=== PATIENT | female | born 1965 | race Caucasian/White ===

== ENCOUNTER 2017-04-05 21:00 | Observation (INO) ==
--- NOTE | 2017-04-05 21:10 | Emergency Department Note ---
Disposition Clinical Impression: Temporary low platelet count Disposition: Admitted As Inpatient Condition: Good Referrals: NO,PCP [Non-Partnered Physician] - Forms: ED Satisfaction Letter Time of Disposition: 22:53 General Adult HPI - General Chief complaint: ED Recheck/Abnormal Lab/Rx Stated complaint: sent from for platlet transfusion Time Seen by Provider: 04/05/17 21:10 Source: patient Limitations: no limitations Nursing Notes Reviewed: Yes Vital Signs Reviewed: Yes - History of Present Illness HPI Narrative: Patient has new diagnosis of liver cancer. She had routine lab work done today and had a platelet count of 16. She received a phone call from the [facility] telling her to come here for platelet transfusion. She has no complaints. She states she has her normal right upper quadrant abdominal pain. Pain Scale: 3 - Related Data Home Medications Medication Instructions Recorded Confirmed Dexamethasone [Decadron] 4 mg PO BID 04/05/17 04/05/17 Docusate [Colace] 200 mg PO BID PRN 04/05/17 04/05/17 Nicotine Patch [Nicoderm] 7 mg TD DAILY 04/05/17 04/05/17 Ondansetron HCl [Zofran] 4 mg PO Q6H PRN 04/05/17 04/05/17 OxyCODONE Immed Rel [Roxicodone 5 5 mg PO Q4H PRN 04/05/17 04/05/17 MG] Pantoprazole Sodium [Protonix] 40 mg PO DAILY 04/05/17 04/05/17 Polyethylene Glycol 3350 17 gm PO BID PRN 04/05/17 04/05/17 [Smoothlax] Sennosides [Senna] 17.2 mg PO BID 04/05/17 04/05/17 Sertraline [Zoloft] 25 mg PO DAILY 04/05/17 04/05/17 Sorafenib Tosylate [Nexavar] 200 mg PO QPM 04/05/17 Sorafenib Tosylate [Nexavar] 400 mg PO QAM 04/05/17 Spironolactone [Aldactone] 50 mg PO DAILY 04/05/17 04/05/17 Allergies Allergy/AdvReac Type Severity Reaction Status Date / Time No Known Allergies Allergy Verified 04/05/17 21:06 All systems ED: reviewed and negative except as stated. Constitutional: Denies: fever, chills ENT ED: Denies: congestion Cardiovascular: Denies: chest pain, palpitations, syncope Respiratory: Denies: cough, dyspnea, wheezes Gastrointestinal: Reports: abdominal pain (Chronic right upper quadrant pain. No changes.). Denies: nausea, vomiting, diarrhea, hematemesis, melena, hematochezia Genitourinary: Denies: urgency, dysuria, frequency, hematuria Musculoskeletal: Denies: back pain, neck pain Integumentary: Reports: rash (Petechial rash to right forearm.) Past Medical History - Past Medical History Medical history: Reports: cancer Psychiatric history: Reports: depression [employer] history: Reports: no [employer] DEVEL[employer] history - Social History Smoking Status: Current every day smoker Smokeless Tobacco Status: No Alcohol use: Reports: none Drug use: Reports: none Physical Exam - General Limitations: no limitations General appearance: alert, in no apparent distress - Head Head exam: atraumatic, normocephalic, normal inspection - Eye Eye exam: Present: normal appearance, PERRL, EOMI - ENT ENT exam: normal exam, normal oropharynx, mucous membranes moist - Neck Neck exam: Present: normal inspection, full ROM, trachea midline - Chest Chest inspection: Present: normal inspection, symmetric chest wall rise. Absent : tenderness - Respiratory Respiratory exam: Present: normal lung sounds bilaterally. Absent: respiratory distress - Cardiovascular Cardiovascular exam: Present: regular rate, normal rhythm, normal heart sounds - Abdominal Exam Abdominal exam: Present: soft, Non-Tender, normal bowel sounds. Absent: tenderness, distention, guarding, rebound, rigidity, organomegaly - Extremities Exam Extremities exam: Present: normal inspection, full ROM, normal capillary refill. Absent: tenderness, pedal edema - Back Exam Back exam: Present: normal inspection, full ROM. Absent: tenderness, CVA tenderness (R), CVA tenderness (L) - Neurological Exam Neurological exam: Present: alert, oriented X3 - Psychiatric Psychiatric exam: Present: normal affect, normal mood - Skin Skin exam: Present: warm, dry, intact, normal color, rash (Small petechial rash to right forearm. Approximately 2 cm x 1 cm.). Absent: cyanosis, diaphoresis Course Course Narrative: Female patient presenting to the emergency department for abnormally low platelets. She was diagnosed with liver cancer on Mother's Day. She is seen at the [facility]. She had routine lab work done today and was told her platelets were 16. He was told to come to the emergency department so she get a platelet transfusion. She has no signs or symptoms of bleeding. She denies any hematochezia or melena hematuria or hematemesis. He only complains of her chronic upper abdominal pain. She states that this is not changed. She does have a mild petechial rash to her right forearm. She has no meningeal signs. She is not febrile. Her vitals are stable. Of note her glucose in the 400s. We will admit patient to the hospital for a platelet transfusion. She is agreeable to this. - Consultations Consultation #1: I spoke with Dr Ziegler. He states that he will come see the Pt in the ED. Time: 22:07 Consultation #2: I spoke with the fellow at the [facility]. She states that she cannot give any advice at this time. She will have the attending the callback. Time: 22:14 Consultation #3: Spoke with Dr Calle. He is advising to go ahead and transfuse the patient with a sixpack of platelets. Time: 22:41 Vital Signs Temperature 97.7 F 04/05/17 21:02 Pulse Rate 72 04/05/17 21:02 Respiratory Rate 16 04/05/17 21:02 Blood Pressure 144/84 04/05/17 21:02 O2 Sat by Pulse Oximetry 96 04/05/17 21:02 Temperature 97.7 F 04/05/17 21:02 Pulse Rate 72 04/05/17 21:02 Respiratory Rate 16 04/05/17 21:02 Blood Pressure 144/84 04/05/17 21:02 O2 Sat by Pulse Oximetry 96 04/05/17 21:02 Oxygen Delivery Oxygen Delivery Room Air Medical Decision Making - Medical Records Medical records reviewed: Yes I reviewed the patient's medical records. - Lab Data Lab results reviewed: Yes I reviewed the patient's lab results. Result diagrams: 04/05/17 22:09 Lab Results 04/05/17 04/05/17 Range/Units 22:09 22: WBC 9.8 (4.3-11.1) K/mcL RBC 4.05 (3.82-4.97) M/mcL Hgb 14.0 (11.5-15.4) g/dL Hct 40.4 (35.3-44.9) % MCV 99.8 (83.0-100.0) fL MCH 34.6 H (28.0-33.3) pg MCHC 34.7 (31.6-35.5) g/dL RDW 14.8 H (11.5-14.5) % Plt Count 11 L* (140-400) K/mcL MPV TNP Immature Gran % 0.8 (0-4) % Seg Neutrophils % 78.3 % Lymphocytes % 11.8 % Monocytes % 8.4 % Eosinophils % 0.6 % Basophils % 0.1 % Neutrophils # 7.7 (1.6-8.9) K/mcL Lymphocytes # 1.2 (0.6-4.6) K/mcL Monocytes # 0.8 (0.0-1.3) K/mcL Eosinophils # 0.1 (0.0-0.6) K/mcL Basophils # 0.0 (0.0-0.2) K/mcL Immature Plt Fraction 35.9 H (1.1-6.1) % Blood Type O POSITIVE Antibody Screen NEGATIVE Attestation Statement - Attestation Attestation: Patient was seen with resident physician. I reviewed the history, physical, assessment and plan, and agree with the findings. I also personally evaluated this patient and had aait-td-annl time with this patient. 51-year-old female recent diagnosis of liver cancer, was getting lab testing today in preparation for starting chemotherapy which she just got sent to her house. Seemed to call from the [facility] and informed to calm to the emergency department to be admitted for transfusion of platelets. Patient's had no signs or symptoms of bleeding. Otherwise feels well except for her usual abdominal discomfort. Vital signs were stable ENT was unremarkable heart and lungs are normal. Abdomen was soft and minimally tender in the right upper quadrant with no guarding or rigidity. Extremities are unremarkable. Neurologically the patient is intact. We reviewed the labs from earlier today platelets were 15, we contacted the hospitalist to sit generally they do not transfuse under 10. We then contacted the [facility] was able to speak with the evening attending. They suggested that transfusion again in preparation, and also because the patient's platelets have dropped to 11 in our repeat evaluation. This new information was relayed to the hospitalist, and admission and transfusion was arranged for the patient. Hemodynamically she remained stable while in the emergency department. I agree with the resident physician assessment and plan.
[2017-04-05 22:16] LABS: Basophils % 0.1 %; Eosinophils # 0.1 K/mcL (0.0-0.6); Eosinophils % 0.6 %; Hematocrit 40.4 % (35.3-44.9); Immature Granulocytes % 0.8 % (0-4); Immature Platelets 35.9 % (1.1-6.1); Lymphocytes # 1.2 K/mcL (0.6-4.6); Lymphocytes % 11.8 %; Mean Corpuscular HGB Conc 34.7 g/dL (31.6-35.5); Mean Corpuscular Hemoglobin 34.6 pg (28.0-33.3); Mean Corpuscular Volume 99.8 fL (83.0-100.0); Monocytes # 0.8 K/mcL (0.0-1.3); Monocytes % 8.4 %; Neutrophils # 7.7 K/mcL (1.6-8.9); Red Blood Count 4.05 M/mcL (3.82-4.97); Red Cell Distribution Width 14.8 % (11.5-14.5); Segmented Neutrophils % 78.3 %
[2017-04-05 22:20] LABS: Platelet Count 11 K/mcL (140-400)
[2017-04-05] MEDS ORDERED: Naloxone 0.4 MG/ML INJ IVP PRN (23:01)
--- NOTE | 2017-04-05 23:05 | Internal Med History&Physical ---
Date of Encounter: 04/05/17 Time of Encounter: 23:05 Assessment and Plan (1) Thrombocytopenia Current visit: Yes Status: Acute Platelet count of 16. Pt had platelet count of 15 in March 2017. Seems chronic thrombocytopenia. Repeat platelet count is 11. ER Resident called the Membership Secretary / oncologist Dr Calel , who recommends 6 pack platelet transfusion. Will transfuse platelets and monitor platelet count. (2) Hyperglycemia Current visit: Yes Status: Acute Labs drawn earlier today showed blood glucose of 400. Likely secondary to dexamethasone. Will check Hemoglobin A1C. Start sliding scale insulin. start diabetic diet (3) Liver malignancy Current visit: Yes Status: Acute Pt follows with [facility] and is expected to start chemotherapy soon. Qualifiers: Liver malignancy type: unspecified liver malignancy Qualified Code(s): C22.9 - Malignant neoplasm of liver, not specified as primary or secondary (4) Abnormal LFTs Current visit: Yes Status: Acute Likely secondary to Liver malignancy. Monitor (5) Nicotine dependence Current visit: Yes Status: Chronic Pt does not want nicotine patch at this time. Qualifiers: Nicotine product type: cigarettes Substance use status: unspecified nicotine-induced disorder Qualified Code(s): F17.219 - Nicotine dependence, cigarettes, with unspecified nicotine-induced disorders Internal Medicine - H&P: HPI Chief complaint: Low platelets Admitted From: Emergency Dept Plans for Post Hospital Care: Home History of present illness: Ms. Mejia is a 51 year old female with a recent diagnosis of liver cancer and is following with [facility]. She had routine lab work done today and when she returned home at 8PM, she had a voice message from the oncologist to go to the local ER for platelet transfusion (for a platelet count of 16). Hence she presented to the ER at [facility]. She reports some pain in the RUQ, which she is not significantly changed. She denies epistaxis, hemoptysis, hematemesis, hematuria, hematochezia, melena. She denies shortness of breath, chest pain, dysuria, bowel problems. She reports a rash/itching over the right forearm. She was evaluated in the ER and admitted to the hospitalist service for further management. Past Med Surg Social Fam HX - Past Medical History Medical history: cancer Psychiatric history: depression - Social History Smoking Status: Current every day smoker Smokeless Tobacco Status: No Alcohol use: none Drug use: none - Family History Mother Hx Family Respiratory Disorders: Yes (COPD) Sister Hx Family Endocrine Disorder: Yes (DM) Internal Medicine - H&P: Meds Dexamethasone [Decadron] 4 mg PO BID 04/05/17 [History] Docusate [Colace] 200 mg PO BID PRN 04/05/17 [History] Nicotine Patch [Nicoderm] 7 mg TD DAILY 04/05/17 [History] Ondansetron HCl [Zofran] 4 mg PO Q6H PRN 04/05/17 [History] OxyCODONE Immed Rel [Roxicodone 5 MG] 5 mg PO Q4H PRN 04/05/17 [History] Pantoprazole Sodium [Protonix] 40 mg PO DAILY 04/05/17 [History] Polyethylene Glycol 3350 [Smoothlax] 17 gm PO BID PRN 04/05/17 [History] Sennosides [Senna] 17.2 mg PO BID 04/05/17 [History] Sertraline [Zoloft] 25 mg PO DAILY 04/05/17 [History] Sorafenib Tosylate [Nexavar] 200 mg PO QPM 04/05/17 [History] Sorafenib Tosylate [Nexavar] 400 mg PO QAM 04/05/17 [History] Spironolactone [Aldactone] 50 mg PO DAILY 04/05/17 [History] Allergies No Known Allergies Allergy (Verified 04/05/17 21:06) All Systems PM: A 10-system review of systems was performed and is negative for pertinent findings except as documented above in the HPI. - Constitutional Vitals: Temp Pulse Resp BP Pulse Ox 97.7 F 72 16 144/84 96 04/05/17 21:02 04/05/17 21:02 04/05/17 21:02 04/05/17 21:02 04/05/17 21:02 Exam: General: Not in acute distress at the time of my evaluation HEENT: Oral mucosa is moist. No conjunctival palor or scleral icterus Neck: No obvious neck swellings Lungs: Clear to auscultation Cardiac: Regular rate and rhythm. No significant murmurs Abdomen: Soft, right upper quadrant tenderness present. Bowel sounds present Genitourinary: No garcia catheter Neurological: Alert and oriented. No gross localizing deficits Psych: Not aggressive or agitated Extremities: no significant leg edema Skin: There is patechie over the right forearm Internal Med - H&P Results - Labs CBC & Chem 7: 04/05/17 22:09 - Impressions Reviewed the result of CT Abdomen and pelvis done in March 2017 - VTE Reasons for not Prescribing Prophylaxis: Treatment not Indicated - Low risk for VTE
[2017-04-06] MEDS ORDERED: 0.9 % Sodium Chloride 250 ML ONE (00:29)
[2017-04-06] MEDS ORDERED: *HR* OxyCODONE Immed Rel 5 MG TABLET PO PRN (02:11)
[2017-04-06] MEDS ORDERED: D5% in Water 1,000 ML IVC PRN (02:14)
[2017-04-06] MEDS ORDERED: *HR* Dextrose 50 % in Water (Syg) 50 ML SYRINGE IVP PRN (02:14)
[2017-04-06] MEDS ORDERED: Dextrose Gel 15 GM PO PRN ×2 (02:14)
[2017-04-06 06:34] LABS: Hematocrit 37.1 % (35.3-44.9); Hemoglobin 12.9 g/dL (11.5-15.4); Immature Platelets 18.8 % (1.1-6.1); Mean Corpuscular HGB Conc 34.8 g/dL (31.6-35.5); Mean Corpuscular Hemoglobin 34.2 pg (28.0-33.3); Mean Corpuscular Volume 98.4 fL (83.0-100.0); Red Blood Count 3.77 M/mcL (3.82-4.97); Red Cell Distribution Width 14.8 % (11.5-14.5)
[2017-04-06 06:35] LABS: Alanine Aminotransferase 77 Units/L (0-55); Albumin 2.5 g/dL (3.5-5.0); Albumin/Globulin Ratio 0.8 (1.1-2.2); Alkaline Phosphatase 201 Units/L (38-126); Aspartate Amino Transferase 54 Units/L (5-34); BUN/Creatinine Ratio 15 (6-26); Bilirubin,Total 3.4 mg/dL (0.2-1.2); Blood Urea Nitrogen 9 mg/dL (7-20); Calcium 8.4 mg/dL (8.6-10.8); Carbon Dioxide 29 mEq/L (19-29); Chloride 102 mEq/L (98-109); Glucose 225 mg/dL (70-99); Magnesium 1.6 mg/dL (1.6-2.6); Osmolality,Calculated 286 (280-300); Sodium 135 mEq/L (136-145); Total Protein 5.5 g/dL (6.0-8.3); eGFR For African Americans > 60 (> 60); eGFR For Non-African Americans > 60 (> 60)
[2017-04-06 06:41] LABS: Hemoglobin A1C 5.9 %
[2017-04-06 06:55] LABS: Platelet Count 17 K/mcL (140-400)
[2017-04-06] MEDS ORDERED: Insulin LISPRO 300 UNITS/3 ML VIAL SQ SCH ×2 (07:30→21:00)
[2017-04-06] MEDS ORDERED: Nicotine 7 MG PATCH.TD24 TD SCH (09:00)
[2017-04-06 10:20] VITALS: BP 93/62
--- NOTE | 2017-04-06 11:07 | Discharge Summary ---
Date of Encounter: 04/06/17 Time of Encounter: 11:06 - Discharge Diagnosis (1) Thrombocytopenia Priority: Primary Status: Acute (2) Liver malignancy Priority: Secondary Status: Acute Qualifiers: Liver malignancy type: unspecified liver malignancy Qualified Code(s): C22.9 - Malignant neoplasm of liver, not specified as primary or secondary - Discharge Medications Home Medications: Dexamethasone [Decadron] 4 mg PO BID 04/05/17 [History] Docusate [Colace] 200 mg PO BID PRN 04/05/17 [History] Nicotine Patch [Nicoderm] 7 mg TD DAILY 04/05/17 [History] Ondansetron HCl [Zofran] 4 mg PO Q6H PRN 04/05/17 [History] OxyCODONE Immed Rel [Roxicodone 5 MG] 5 mg PO Q4H PRN 04/05/17 [History] Pantoprazole Sodium [Protonix] 40 mg PO DAILY 04/05/17 [History] Polyethylene Glycol 3350 [Smoothlax] 17 gm PO BID PRN 04/05/17 [History] Sennosides [Senna] 17.2 mg PO BID 04/05/17 [History] Sertraline [Zoloft] 25 mg PO DAILY 04/05/17 [History] Sorafenib Tosylate [Nexavar] 200 mg PO QPM 04/05/17 [History] Sorafenib Tosylate [Nexavar] 400 mg PO QAM 04/05/17 [History] Spironolactone [Aldactone] 50 mg PO DAILY 04/05/17 [History] Allergies/Adverse Reactions: Allergies No Known Allergies Allergy (Verified 04/05/17 21:06) Date of admission: 04/05/17 23:04 Primary care physician: Nisreen Monique Discharging clinician: Iraj Day Anticipated date of discharge: 04/06/17 - Patient Status Disposition: Home, Self-Care Condition: Good Functional capacity at discharge: independent ambulation Overall status at discharge: patient is back to baseline - Discharge Instructions Follow Up With: Shane Syed DO [Primary Care Provider] - - Diet and Activity Activity: resume usual activities as tolerated Diet: advance to your usual diet Interval History: Ms. Mejia is a 51 year old female with a recent diagnosis of liver cancer and is following with [facility]. She had routine lab work done today and when she returned home at 8PM, she had a voice message from the oncologist to go to the local ER for platelet transfusion (for a platelet count of 16). Hence she presented to the ER at [facility]. She reports some pain in the RUQ, which she is not significantly changed. She denies epistaxis, hemoptysis, hematemesis, hematuria, hematochezia, melena. She denies shortness of breath, chest pain, dysuria, bowel problems. She reports a rash/itching over the right forearm. She was evaluated in the ER and admitted to the hospitalist service for further management. she received one unit of platelets overnight, repeat plt count this morning is 17. her oncologist DR. goodson was contacted, he says no further need for plt transfuion, hence she is bieng dc in stable condition. she will f/u at [facility]. Hospital course: Ms. Mejia is a 51 year old female Time spent discussing smoking cessation with patient: more than 10 minutes - Time Spent with Patient Total time spent providing and/or coordinating discharge services: Greater than 30 minutes - Constitutional Vitals: Temp Pulse Resp BP Pulse Ox 98.3 F 56 16 93/62 96 04/06/17 10:12 04/06/17 10:12 04/06/17 10:12 04/06/17 10:12 04/06/17 10:12 General appearance: Present: A&O X 3, no acute distress Exam: General: Not in acute distress at the time of my evaluation HEENT: Oral mucosa is moist. No conjunctival palor or scleral icterus Neck: No obvious neck swellings Lungs: Clear to auscultation Cardiac: Regular rate and rhythm. No significant murmurs Abdomen: Soft, right upper quadrant tenderness present. Bowel sounds present Genitourinary: No garcia catheter Neurological: Alert and oriented. No gross localizing deficits Psych: Not aggressive or agitated Extremities: no significant leg edema Skin: There is patechie over the right forearm - VTE Reasons for not Prescribing Prophylaxis: Treatment not Indicated - Low risk for VTE
== END 2017-04-06 12:26 | disposition home or self-care (01) ==
LOC: EMEROO 21:00 → 3ANU 21:00
PROVIDERS: ADMIT Internal Medicine; ATTEND Internal Medicine Endocrinology, Diabetes & Metabolism

== ENCOUNTER 2017-06-12 19:11 | Inpatient (IN) ==
--- NOTE | 2017-06-12 19:53 | Emergency Department Note ---
Disposition Clinical Impression: Thrombocytopenia, Hematochezia Liver cancer Qualifiers: Liver malignancy type: unspecified primary liver malignancy Qualified Code(s): C22.8 - Malignant neoplasm of liver, primary, unspecified as to type Hepatitis C Qualifiers: Viral hepatitis chronicity: chronic Hepatic coma status: without hepatic coma Qualified Code(s): B18.2 - Chronic viral hepatitis C Disposition: Admitted As Inpatient Condition: Fair Referrals: NONE,PCP [Non-Partnered Physician] - Forms: ED Satisfaction Letter Time of Disposition: 22:30 GI Bleed HPI - General Chief complaint: ED GI Bleed Stated complaint: bloody stool, Liver CA PT Time Seen by Provider: 06/12/17 19:30 Source: patient, family Limitations: no limitations - History of Present Illness HPI Narrative: Mrs. Mejia is a 51-year-old female with past medical history of hepatitis C and most real recently a stage IV liver cancer diagnosis. She presents to the ED with a 1 day history of gross hematochezia. Patient reports having several episodes of diarrhea this morning and her last episode of diarrhea the toilet was filled with red blood. Patient was instructed to report to the emergency department as she has thrombocytopenia and elevations of her other liver enzymes. Patient was told that she is unable to take standard chemotherapy regimen secondary to her blood liver abnormalities. She is however taking daily Nexavar. Patient denies any chest pain shortness of breath, abdominal pain, or vomitting. She is experiencing some nausea. - Related Data Home Medications Medication Instructions Recorded Confirmed Docusate [Colace] 200 mg PO BID PRN 04/05/17 04/05/17 Nicotine Patch [Nicoderm] 7 mg TD DAILY 04/05/17 04/05/17 Ondansetron HCl [Zofran] 4 mg PO Q6H PRN 04/05/17 04/05/17 OxyCODONE Immed Rel [Roxicodone 5 5 mg PO Q4H PRN 04/05/17 04/05/17 MG] Pantoprazole Sodium [Protonix] 40 mg PO DAILY 04/05/17 04/05/17 Sennosides [Senna] 17.2 mg PO BID 04/05/17 04/05/17 Sorafenib Tosylate [Nexavar] 200 mg PO QPM 04/05/17 Spironolactone [Aldactone] 50 mg PO DAILY 04/05/17 04/05/17 Sertraline [Zoloft] 50 mg PO DAILY 06/12/17 06/12/17 Allergies Allergy/AdvReac Type Severity Reaction Status Date / Time No Known Allergies Allergy Verified 06/12/17 19:28 Past Medical History - Past Medical History Medical history: Reports: cancer, other Psychiatric history: Reports: anxiety, depression STATEMENT PROCESSOR history: Reports: no STATEMENT PROCESSOR history - Social History Smoking Status: Current every day smoker Smokeless Tobacco Status: No Alcohol use: Reports: none Drug use: Reports: none Physical Exam - General Limitations: no limitations General appearance: alert - Head Head exam: atraumatic, normocephalic - Eye Eye exam: Present: normal appearance, PERRL, EOMI. Absent: scleral icterus - Respiratory Respiratory exam: Present: normal lung sounds bilaterally. Absent: respiratory distress, wheezes, stridor - Cardiovascular Cardiovascular exam: Absent: regular rate, normal rhythm, systolic murmur, diastolic murmur, rubs, gallop - Abdominal Exam Abdominal exam: Present: soft. Absent: distention, guarding, rebound, Rovsing' s sign, pulsatile mass Abdominal tenderness: Present: RUQ, LUQ, mild - Rectal Exam Rectal exam: Present: normal rectal tone (Dried perianal blood.). Absent: hemorrhoids, mass - Extremities Exam Extremities exam: Absent: pedal edema - Neurological Exam Neurological exam: Present: alert, oriented X3 - Psychiatric Psychiatric exam: Present: normal affect Course Course Narrative: 51-year-old female with stage IV liver cancer and reported thrombocytopenia. Will order labs, coags, Hemoccult testing, ECG ,and type and screen. Patiently currently resting comfortably, hemodynamically stable, and in no apparent distress. - Reevaluation(s) Reevaluation #1: Lab called to report a critical value in her platelets at 26.4. Patient with thrombocytopenia, hematochezia, coagulopathy, and end stage liver cancer. Will admit to medicine for further workup and stabilization. Dr. VINCENT accepted the admission. Vital Signs Temperature 97.7 F 06/12/17 19:24 Pulse Rate 91 06/12/17 19:24 Respiratory Rate 16 06/12/17 19:24 Blood Pressure 121/81 06/12/17 19:24 O2 Sat by Pulse Oximetry 95 06/12/17 19:24 Temperature 97.7 F 06/12/17 19:24 Pulse Rate 70 06/12/17 20:28 Respiratory Rate 18 06/12/17 20:28 Blood Pressure 125/78 06/12/17 20:28 O2 Sat by Pulse Oximetry 95 06/12/17 20:28 Oxygen Delivery Oxygen Delivery Room Air GI Bleed - Differential Diagnosis Likely: Lower gastrointestinal hemorrhage, hematochezia - Medical Records Medical records reviewed: Yes I reviewed the patient's medical records. - Lab Data Lab results reviewed: Yes I reviewed the patient's lab results. Result diagrams: 06/12/17 20:51 06/12/17 20:51 Lab Results 06/12/17 06/12/17 06/12/17 Range/Units 19:55 19:55 19:55 WBC (4.3-11.1) K/mcL RBC (3.82-4.97) M/mcL Hgb (11.5-15.4) g/dL Hct (35.3-44.9) % MCV (83.0-100.0) fL MCH (28.0-33.3) pg MCHC (31.6-35.5) g/dL RDW (11.5-14.5) % Plt Count MPV Immature Gran % (0-4) % Seg Neutrophils % % Lymphocytes % % Monocytes % % Eosinophils % % Basophils % % Neutrophils # (1.6-8.9) K/mcL Lymphocytes # (0.6-4.6) K/mcL Monocytes # (0.0-1.3) K/mcL Eosinophils # (0.0-0.6) K/mcL Basophils # (0.0-0.2) K/mcL Platelet Estimate (Normal) Plt Count ,Citrate (150-600) Immature Plt Fraction PT 15.0 H (9.4-12.1) Seconds INR 1.4 APTT 34.9 (26.0-36.0) Seconds Sodium (136-145) mEq/L Potassium (3.5-4.5) mEq/L Chloride (98-109) mEq/L Carbon Dioxide (19-29) mEq/L BUN (7-20) mg/dL Creatinine (0.57-1.11) mg/dL Est GFR ( Amer) (> 60) Est GFR (Non-Af Amer) (> 60) BUN/Creatinine Ratio (6-26) Glucose (70-99) mg/dL Calculated Osmolality (280-300) Calcium (8.6-10.8) mg/dL Total Bilirubin (0.2-1.2) mg/dL Direct Bilirubin (0.0-0.5) mg/dL Indirect Bilirubin (0.0-1.2) mg/dL AST (5-34) Units/L ALT (0-55) Units/L Alkaline Phosphatase (38-126) Units/L Serum Total Protein (6.0-8.3) g/dL Albumin (3.5-5.0) g/dL Globulin (2.4-3.5) g/dL Albumin/Globulin Ratio (1.1-2.2) Lipase (8-78) Units/L Stool Occult Blood (Negative) Specimen Rejected Hemolyzed Hemolyzed Blood Type Antibody Screen 06/12/17 06/12/17 06/12/17 Range/Units 20:51 20:51 20:51 WBC 4.3 (4.3-11.1) K/mcL RBC 3.83 (3.82-4.97) M/mcL Hgb 13.0 (11.5-15.4) g/dL Hct 39.2 (35.3-44.9) % MCV 102.3 H (83.0-100.0) fL MCH 33.9 H (28.0-33.3) pg MCHC 33.2 (31.6-35.5) g/dL RDW 15.9 H (11.5-14.5) % Plt Count TNP MPV TNP Immature Gran % 0.5 (0-4) % Seg Neutrophils % 56.2 % Lymphocytes % 28.2 % Monocytes % 12.3 % Eosinophils % 2.3 % Basophils % 0.5 % Neutrophils # 2.4 (1.6-8.9) K/mcL Lymphocytes # 1.2 (0.6-4.6) K/mcL Monocytes # 0.5 (0.0-1.3) K/mcL Eosinophils # 0.1 (0.0-0.6) K/mcL Basophils # 0.0 (0.0-0.2) K/mcL Platelet Estimate Marked Decrease L (Normal) Plt Count ,Citrate (150-600) Immature Plt Fraction TNP PT (9.4-12.1) Seconds INR APTT (26.0-36.0) Seconds Sodium 136 (136-145) mEq/L Potassium 3.9 (3.5-4.5) mEq/L Chloride 104 (98-109) mEq/L Carbon Dioxide 27 (19-29) mEq/L BUN 5 L (7-20) mg/dL Creatinine 0.59 (0.57-1.11) mg/dL Est GFR ( Amer) > 60 (> 60) Est GFR (Non-Af Amer) > 60 (> 60) BUN/Creatinine Ratio 8 (6-26) Glucose 139 H (70-99) mg/dL Calculated Osmolality 282 (280-300) Calcium 8.7 (8.6-10.8) mg/dL Total Bilirubin (0.2-1.2) mg/dL Direct Bilirubin (0.0-0.5) mg/dL Indirect Bilirubin (0.0-1.2) mg/dL AST (5-34) Units/L ALT (0-55) Units/L Alkaline Phosphatase (38-126) Units/L Serum Total Protein (6.0-8.3) g/dL Albumin (3.5-5.0) g/dL Globulin (2.4-3.5) g/dL Albumin/Globulin Ratio (1.1-2.2) Lipase 26 (8-78) Units/L Stool Occult Blood (Negative) Specimen Rejected Blood Type O POSITIVE Antibody Screen NEGATIVE 06/12/17 06/12/17 06/12/17 Range/Units 20:51 20:51 20:55 WBC (4.3-11.1) K/mcL RBC (3.82-4.97) M/mcL Hgb (11.5-15.4) g/dL Hct (35.3-44.9) % MCV (83.0-100.0) fL MCH (28.0-33.3) pg MCHC (31.6-35.5) g/dL RDW (11.5-14.5) % Plt Count MPV TNP Immature Gran % (0-4) % Seg Neutrophils % % Lymphocytes % % Monocytes % % Eosinophils % % Basophils % % Neutrophils # (1.6-8.9) K/mcL Lymphocytes # (0.6-4.6) K/mcL Monocytes # (0.0-1.3) K/mcL Eosinophils # (0.0-0.6) K/mcL Basophils # (0.0-0.2) K/mcL Platelet Estimate (Normal) Plt Count ,Citrate 26.4 L* (150-600) Immature Plt Fraction PT (9.4-12.1) Seconds INR APTT (26.0-36.0) Seconds Sodium (136-145) mEq/L Potassium (3.5-4.5) mEq/L Chloride (98-109) mEq/L Carbon Dioxide (19-29) mEq/L BUN (7-20) mg/dL Creatinine (0.57-1.11) mg/dL Est GFR ( Amer) (> 60) Est GFR (Non-Af Amer) (> 60) BUN/Creatinine Ratio (6-26) Glucose (70-99) mg/dL Calculated Osmolality (280-300) Calcium (8.6-10.8) mg/dL Total Bilirubin 2.9 H (0.2-1.2) mg/dL Direct Bilirubin 1.6 H (0.0-0.5) mg/dL Indirect Bilirubin 1.3 H (0.0-1.2) mg/dL AST 97 H (5-34) Units/L ALT 63 H (0-55) Units/L Alkaline Phosphatase 186 H (38-126) Units/L Serum Total Protein 6.8 (6.0-8.3) g/dL Albumin 2.6 L (3.5-5.0) g/dL Globulin 4.2 H (2.4-3.5) g/dL Albumin/Globulin Ratio 0.6 L (1.1-2.2) Lipase (8-78) Units/L Stool Occult Blood Positive A (Negative) Specimen Rejected Blood Type Antibody Screen - EKG Data EKG attestation: Yes I reviewed and interpreted this EKG. EKG results narrative: Patient's ECG shows normal sinus rhythm on 06/12/2017 at 7:45 PM. This is unchanged from patient's ECG on 03/15/2017 which showed sinus rhythm.
[2017-06-12 20:17] LABS: INR 1.4
[2017-06-12 20:19] LABS: Activated Partial Thrombo Time 34.9 Seconds (26.0-36.0)
--- NOTE | 2017-06-12 20:41 | Emergency Department Note ---
START Narrative - START START: I examined this patient and my medical decision-making was reviewed with the AUDIO VISUAL COLLECTIONS COORDINATOR/PA/Advanced Practice Nurse/Resident Physician. I agree with the documented findings, disposition and treatment plan as described except to the extent set forth below. The patient does have a history of hepatitis C which she thinks from a tattoo and she now has liver cancer and she has had a problem with thrombocytopenia but today she presents because of rectal bleeding. She has no epigastric pain or nausea or vomiting. Rectal exam was done showing brown stool on the glove. The patient's blood work is pending. 2040
[2017-06-12 21:22] LABS: Basophils % 0.5 %; Eosinophils # 0.1 K/mcL (0.0-0.6); Eosinophils % 2.3 %; Hematocrit 39.2 % (35.3-44.9); Immature Granulocytes % 0.5 % (0-4); Lymphocytes # 1.2 K/mcL (0.6-4.6); Lymphocytes % 28.2 %; Mean Corpuscular HGB Conc 33.2 g/dL (31.6-35.5); Mean Corpuscular Hemoglobin 33.9 pg (28.0-33.3); Mean Corpuscular Volume 102.3 fL (83.0-100.0); Monocytes # 0.5 K/mcL (0.0-1.3); Monocytes % 12.3 %; Neutrophils # 2.4 K/mcL (1.6-8.9); Red Blood Count 3.83 M/mcL (3.82-4.97); Red Cell Distribution Width 15.9 % (11.5-14.5); Segmented Neutrophils % 56.2 %
[2017-06-12 21:56] LABS: BUN/Creatinine Ratio 8 (6-26); Calcium 8.7 mg/dL (8.6-10.8); Carbon Dioxide 27 mEq/L (19-29); Chloride 104 mEq/L (98-109); Glucose 139 mg/dL (70-99); Lipase 26 Units/L (8-78); Osmolality,Calculated 282 (280-300); Potassium 3.9 mEq/L (3.5-4.5); Sodium 136 mEq/L (136-145); eGFR For African Americans > 60 (> 60); eGFR For Non-African Americans > 60 (> 60)
[2017-06-12 21:57] LABS: Albumin 2.6 g/dL (3.5-5.0); Albumin/Globulin Ratio 0.6 (1.1-2.2); Bilirubin,Direct 1.6 mg/dL (0.0-0.5); Bilirubin,Indirect 1.3 mg/dL (0.0-1.2); Bilirubin,Total 2.9 mg/dL (0.2-1.2); Globulin 4.2 g/dL (2.4-3.5); Platelet Estimate Marked Decrease (Normal); Total Protein 6.8 g/dL (6.0-8.3)
[2017-06-12 21:58] LABS: Blood Urea Nitrogen 5 mg/dL (7-20)
[2017-06-12] MEDS ORDERED: Ondansetron ODT 4 MG TAB.RAPDIS PO PRN (23:09)
[2017-06-12] MEDS ORDERED: Naloxone 0.4 MG/ML INJ IVP PRN (23:10)
--- NOTE | 2017-06-12 23:17 | Internal Med History&Physical ---
Date of Encounter: 06/12/17 Time of Encounter: 23:15 Assessment and Plan (1) Hematochezia Current visit: Yes Status: Acute suspect due to internal hemorrhoids given painless symptoms. Exacerbated by thrombocytopenia. Q6 H/H, clears, IVF, transfuse plt. Consult GI in the a.m (2) Cirrhosis of liver Current visit: Yes Status: Acute Qualifiers: Hepatic cirrhosis type: unspecified hepatic cirrhosis Ascites presence: without ascites Qualified Code(s): K74.60 - Unspecified cirrhosis of liver (3) Thrombocytopenia Current visit: No Status: Acute Secondary to cirrhosis, portal HTN and possibly Nexavar (4) Liver cancer Current visit: Yes Status: Acute Currently on Nexavar. Hold drug in the inpatient. Rec follow up with onc to discuss plan for restart after this admission Qualifiers: Liver malignancy type: hepatocellular carcinoma Qualified Code(s): C22.0 - Liver cell carcinoma (5) Hepatitis C Current visit: Yes Status: Acute close monitoring for now Qualifiers: Viral hepatitis chronicity: chronic Hepatic coma status: without hepatic coma Qualified Code(s): B18.2 - Chronic viral hepatitis C Internal Medicine - H&P: HPI Chief complaint: Lower GI bleed History of present illness: Ms. Mejia is a 51 year old female with a history of hepatitis C, recent diagnosis of HCC on Nexavar since the past month, we will presents with acute onset hematochezia. Symptoms developed at around 4PM this afternoon with output of yao bright red blood MS without stools. She denies any history of hemorrhoidal disease. Since the initial episode in the afternoon she developed several other episodes of bright red blood MS. She estimates that she has probably lost 100 mL volume of blood. She denies any chest pain or shortness of breath suggestive of symptomatic anemia In the ER she was found to have a low platelet count. Her cancer care is provided at [facility]. Past Med Surg Social Fam HX - Past Medical History Medical history: cancer, other Psychiatric history: anxiety, depression - Social History Smoking Status: Current every day smoker Smokeless Tobacco Status: No Alcohol use: none Drug use: none - Family History Mother Hx Family Respiratory Disorders: Yes (COPD) Sister Hx Family Endocrine Disorder: Yes (DM) Internal Medicine - H&P: Meds Docusate [Colace] 200 mg PO BID PRN 04/05/17 [History] Nicotine Patch [Nicoderm] 7 mg TD DAILY 04/05/17 [History] Ondansetron HCl [Zofran] 4 mg PO Q6H PRN 04/05/17 [History] OxyCODONE Immed Rel [Roxicodone 5 MG] 5 mg PO Q4H PRN 04/05/17 [History] Pantoprazole Sodium [Protonix] 40 mg PO DAILY 04/05/17 [History] Sennosides [Senna] 17.2 mg PO HS PRN 04/05/17 [History] Sorafenib Tosylate [Nexavar] 200 mg PO DAILY 04/05/17 [History] Spironolactone [Aldactone] 50 mg PO DAILY 04/05/17 [History] Sertraline [Zoloft] 50 mg PO DAILY 06/12/17 [History] Allergies No Known Allergies Allergy (Verified 06/12/17 19:28) All Systems PM: A 10-system review of systems was performed and is negative for pertinent findings except as documented above in the HPI. Review of systems: ROS 14 point review of systems reviewed as best as possible given presentation. Pertinent positive or negative as per HPI or otherwise reviewed as negative - Constitutional Vitals: Temp Pulse Resp BP Pulse Ox 97.7 F 74 18 124/76 97 06/12/17 19:24 06/12/17 22:51 06/12/17 22:51 06/12/17 22:51 06/12/17 22:51 Exam: General - AAO x 3 Psych - Appropriate affect/speech. No agitation Eyes - CHIO. Eye lids intact. No scleral icterus ENT - Oral mucosa pink, dentition intact. External ear clear/dry/intact. No thyromegaly Lymphatics - No cervical/inguinal lympadenopathy Neuro - No gross peripheral or central neuro deficits with intact CN 2-12 exam Heart - Sinus. RRR. S1 and S2 present. No added HS/murmurs appreciated. No elevated JVD appreciated. No calf swellings/erythema Lung - Adequate air entry b/l, No crackes/wheezes appreciated GI - Soft, non-tender. No hepatosplenomegaly/ascities. BS+ - No CVA/suprapubic tenderness or palpable bladder distension Skin - Intact. No rash/petechiae/ecchymosis. Warm extremities. Palmar erythema MSK - Joints with normal ROM. No joint swellings Internal Med - H&P Results - Labs CBC & Chem 7: 06/12/17 20:51 06/12/17 20:51
[2017-06-12 23:41] LABS: Hematocrit 39.6 % (35.3-44.9)
[2017-06-12 23:43] LABS: Hemoglobin 13.2 g/dL (11.5-15.4)
[2017-06-12] MEDS: 0.9 % Sodium Chloride 1,000 ML IVC SCH (23:45)
[2017-06-12] MEDS: *HR* OxyCODONE Immed Rel 5 MG TABLET PO PRN (23:45)
[2017-06-13] MEDS ORDERED: 0.9 % Sodium Chloride 250 ML ONE (01:48)
[2017-06-13 05:09] LABS: BUN/Creatinine Ratio 8 (6-26); Calcium 8.7 mg/dL (8.6-10.8); Carbon Dioxide 27 mEq/L (19-29); Chloride 105 mEq/L (98-109); Glucose 109 mg/dL (70-99); Osmolality,Calculated 284 (280-300); Potassium 3.8 mEq/L (3.5-4.5); Sodium 138 mEq/L (136-145); eGFR For African Americans > 60 (> 60); eGFR For Non-African Americans > 60 (> 60)
[2017-06-13 05:12] LABS: Albumin 2.7 g/dL (3.5-5.0); Albumin/Globulin Ratio 0.6 (1.1-2.2); Bilirubin,Direct 1.7 mg/dL (0.0-0.5); Bilirubin,Indirect 1.2 mg/dL (0.0-1.2); Globulin 4.2 g/dL (2.4-3.5); Total Protein 6.9 g/dL (6.0-8.3)
[2017-06-13 05:27] LABS: Bilirubin,Total 2.9 mg/dL (0.2-1.2)
[2017-06-13 05:28] LABS: Blood Urea Nitrogen 5 mg/dL (7-20)
[2017-06-13 05:34] LABS: INR 1.3
[2017-06-13 05:36] LABS: Activated Partial Thrombo Time 35.9 Seconds (26.0-36.0)
[2017-06-13 06:02] LABS: Hematocrit 35.9 % (35.3-44.9); Hemoglobin 11.9 g/dL (11.5-15.4)
[2017-06-13] MEDS: Nicotine 7 MG PATCH.TD24 TD SCH (09:05)
[2017-06-13] MEDS: *HR* OxyCODONE Immed Rel 5 MG TABLET PO PRN ×2 (09:06→22:22)
[2017-06-13] MEDS: 0.9 % Sodium Chloride 1,000 ML IVC SCH (09:53)
[2017-06-13 11:42] LABS: Hemoglobin 11.5 g/dL (11.5-15.4)
[2017-06-13 11:44] LABS: Hematocrit 34.9 % (35.3-44.9)
--- NOTE | 2017-06-13 12:18 | Gastroenterology Consult Note ---
<Zan Schultz - Last Filed: 06/13/17 12:11> Date of Encounter: 06/13/17 Time of Encounter: 10:45 - Assessment and plan (1) Rectal bleeding Current Visit: Yes Status: Acute Assessment and plan: Pt with several episodes of BRBPR prior to admission. No further bleeding noted. Rectal exam with no blood noted. Continue to monitor, if she develops active rectal bleeding, will consider colonoscopy. (2) Thrombocytopenia Current Visit: No Status: Acute Assessment and plan: Secondary to cirrhosis. (3) Liver cancer Current Visit: Yes Status: Acute Assessment and plan: Pt being treated at [facility]. Qualifiers: Liver malignancy type: hepatocellular carcinoma Qualified Code(s): C22.0 - Liver cell carcinoma (4) Cirrhosis of liver Current Visit: Yes Status: Acute Assessment and plan: Pt with history of ETOH abuse, no longer consuming alcohol. MELD 17, Child Amn class B-C, DF 23.6. Pt being managed at [facility]. Last EGD was 3 weeks ago with variceal banding completed. Qualifiers: Hepatic cirrhosis type: unspecified hepatic cirrhosis Ascites presence: without ascites Qualified Code(s): K74.60 - Unspecified cirrhosis of liver (5) Hepatitis C Current Visit: Yes Status: Acute Qualifiers: Viral hepatitis chronicity: chronic Hepatic coma status: without hepatic coma Qualified Code(s): B18.2 - Chronic viral hepatitis C - Time Spent With Patient Total time spent is greater than 50% in coordination of care (as documented) at patient's floor/unit and/or counseling patient: GI History of Present Illness - Data of Consult Patient: new to practice Consult date: 06/13/17 Requesting Physician: Divina Ricci - Consult Narrative Reason for consult: Rectal bleeding History of present illness: Ms. Mejia is a 51 year old female with PMHx of recent diagnosis of HCC on Nexavar, cirrhosis, chronic hepatitis C, alcohol use, and thrombocytopenia who presented with hematochezia that started around 4 PM yesterday afternoon. She reports having several episodes of diarrhea in the morning. Since the initial episode she developed several other episodes of bright red blood per rectum. She denied fever, chills, chest pain, shortness of breath, abdominal pain, nausea, vomiting, or melena. Hemoglobin on admission was 13 and this morning Hgb 11.9. She has history of snorting cocaine, on professional tattoos, and drinking 12 pack of beer on the weekends. Procedures: EGD 3 weeks ago at [facility], variceal banding completed per patient report NSAIDs: None Anticoagulation: None Past Med Surg Social Fam HX - Past Medical History Medical history: cancer, diabetes Psychiatric history: anxiety, depression - Past Surgical History Surgical History: cholecystectomy - Social History Smoking Status: Current some day smoker Smokeless Tobacco Status: No Alcohol use: none Drug use: none - Family History Mother Living Status: Age at : 64 Cause of : COPD Hx Family Cardiac Disorders: Yes (unable to state) Hx Family Respiratory Disorders: Yes (COPD, emphysema) Hx Family Cancer: No Hx Family GI Disorders: Yes ("bowels split open") Hx Family Genitourinary Disorders: No Hx Family Endocrine Disorder: No Hx Family Musculoskeletal Disorders: No Hx Family Neuromuscular Disorders: No Hx Family Neurologic Disorders: No Hx Family HEENT Disorders: No Hx Family Autoimmune Disorders: No Hx Family Reproductive Disorders: No Hx Family Psychosocial Disorders: No Hx Family Medical Disorders: No Sister Hx Family Endocrine Disorder: Yes (DM) - Gastrointestinal Gastrointestinal: Present: as per HPI - Constitutional Constitutional: as per HPI - EENT Eyes: as per HPI Ears: Present: as per HPI Nose, mouth and throat: Present: as per HPI - Cardiovascular Cardiovascular ROS: Present: as per HPI - Respiratory Respiratory IM: Present: as per HPI - Genitourinary Genitourinary: Absent: change in color, Urinary frequency - Neurological ROS Neurological GI: Present: as per HPI - Hematologic/Lymphatic Hematologic/Lymphatic pediatric: Present: as per HPI - Musculoskeletal Musculoskeletal ROS GI: Present: as per HPI - Integumentary Integumentary GI: Present: as per HPI - Psychiatric ROS Psychiatric GI: Present: as per HPI - Endocrine Endocrine IM: Present: as per HPI - Constitutional Vitals: Temp Pulse Resp BP Pulse Ox 97.8 F 66 17 114/76 94 06/13/17 11:19 06/13/17 11:19 06/13/17 11:19 06/13/17 11:19 06/13/17 11:19 General appearance: Present: cooperative, A&O X 3, no acute distress, answers questions appropriately - Head Head exam: Present: atraumatic, normocephalic - Eye Eye exam: Present: normal appearance, sclera anicteric - ENT ENT exam: Present: mucous membranes moist - Neck Neck exam general surgery: Present: normal inspection, trachea midline - Respiratory Respiratory exam: Present: CTAB. Absent: rales, rhonchi - Cardiovascular Cardiovascular exam: Present: RRR, +S1, +S2 - GI/Abdominal GI/Abdominal exam: Present: soft, no peritoneal signs. Absent: distended, firm , guarding, tenderness - Rectal Rectal exam: Present: deferred - Extremities Exam Extremities exam: Present: warm - Neurological Exam Neurological exam: Present: no focal deficits - Psychiatric Psychiatric exam: Present: normal affect, normal mood - Skin Skin exam: Present: dry, intact, normal color, warm Results - Labs CBC & Chem 7: 06/13/17 11:12 06/13/17 04:10 Labs: Last Result Calcium 8.7 mg/dL (8.6-10.8) 06/13/17 04:10 Stool Occult Blood Positive (Negative) A 06/12/17 20:55 Entire Visit Hgb 11.5 g/dL (11.5-15.4) 06/13/17 11:12 Hct 34.9 % (35.3-44.9) L 06/13/17 11:12 PT 14.0 Seconds (9.4-12.1) H 06/13/17 04:10 Total Bilirubin 2.9 mg/dL (0.2-1.2) H 06/13/17 04:10 AST 90 Units/L (5-34) H 06/13/17 04:10 ALT 58 Units/L (0-55) H 06/13/17 04:10 Lipase 26 Units/L (8-78) 06/12/17 20:51 - ABG ABG results: PT/INR, D-dimer PT 14.0 Seconds (9.4-12.1) H 06/13/17 04:10 Consult Discharge Plan - Plan Referrals: Shane Syed DO [Primary Care Provider] - <Brendan Reilly - Last Filed: 06/13/17 18:26> Date of Encounter: 06/13/17 Time of Encounter: 18:00 - Time Spent With Patient Total time spent is greater than 50% in coordination of care (as documented) at patient's floor/unit and/or counseling patient: GI History of Present Illness - Data of Consult Requesting Physician: Divina Ricci - Consult Narrative History of present illness: Ms. Mejia is a 51 year old female - Constitutional Vitals: Temp Pulse Resp BP Pulse Ox 97.7 F 72 15 114/79 96 06/13/17 16:26 06/13/17 16:26 06/13/17 16:26 06/13/17 16:26 06/13/17 16:26 Results - Labs CBC & Chem 7: 06/13/17 11:12 06/13/17 04:10 Labs: Last Result Calcium 8.7 mg/dL (8.6-10.8) 06/13/17 04:10 Stool Occult Blood Positive (Negative) A 06/12/17 20:55 Entire Visit Hgb 11.5 g/dL (11.5-15.4) 06/13/17 11:12 Hct 34.9 % (35.3-44.9) L 06/13/17 11:12 PT 14.0 Seconds (9.4-12.1) H 06/13/17 04:10 Total Bilirubin 2.9 mg/dL (0.2-1.2) H 06/13/17 04:10 AST 90 Units/L (5-34) H 06/13/17 04:10 ALT 58 Units/L (0-55) H 06/13/17 04:10 Lipase 26 Units/L (8-78) 06/12/17 20:51 - ABG ABG results: PT/INR, D-dimer PT 14.0 Seconds (9.4-12.1) H 06/13/17 04:10 - Attending Attestation I examined this patient and my medical decision-making was reviewed with the Resident Physician. I agree with the documented findings, disposition and treatment plan as described except to the extent set forth below.
--- NOTE | 2017-06-13 15:33 | Electrocardiograph Report ---
[place] [id number] Test Date: 2017-06-12 Pat Name: Leslee Mejia Department: 0 Room: 3B43 Gender: F Package Drier: : 1965 Requested By: Zan Rodriguez Order Number: [id number] Reading MD: Robert Rapp Measurements Intervals [place] Rate: 78 P: 34 IA: 170 QRS: -15 QRSD: 94 T: 4 QT: 364 QTc: 398 Interpretive Statements SINUS RHYTHM Electronically Signed On 06-13-2017 15:31:13 EDT by Robert Rapp
--- NOTE | 2017-06-13 16:07 | Internal Med Progress Note ---
Date of Encounter: 06/13/17 Time of Encounter: 16:06 - Assessment and plan (1) Rectal bleeding Current Visit: Yes Status: Acute Assessment and plan: Improved mostly due to internal hemorrhoidal bleeding cont close monitoring So far not a big drop in her HB..today @ 11.5 GI is on board started her on Soft diet (2) Thrombocytopenia Current Visit: No Status: Acute Assessment and plan: Due to Cirrhosis of liver / Hepatic carcinoma current worsening thrombocytopenia could be due to her recent chemo too cont close monitoring (3) Abnormal LFTs Current Visit: No Status: Acute Assessment and plan: Mostly chronic due to hepatic CA (4) Liver cancer Current Visit: Yes Status: Acute Qualifiers: Liver malignancy type: hepatocellular carcinoma Qualified Code(s): C22.0 - Liver cell carcinoma (5) Hepatitis C Current Visit: Yes Status: Acute Qualifiers: Viral hepatitis chronicity: chronic Hepatic coma status: without hepatic coma Qualified Code(s): B18.2 - Chronic viral hepatitis C (6) Cirrhosis of liver Current Visit: Yes Status: Acute Assessment and plan: resumed home meds Qualifiers: Hepatic cirrhosis type: unspecified hepatic cirrhosis Ascites presence: without ascites Qualified Code(s): K74.60 - Unspecified cirrhosis of liver - Subjective Interval history: Ms. Mejia is a 51 year old female with a history of hepatitis C, recent diagnosis of HCC on Nexavar since the past month, was presented to ER y/d with acute onset hematochezia, bright red blood per rectum x 2 episodes. She denied any CP / SOB / Abd pain. No more blood in her stools She had 2 BM today so far with no blood. - Constitutional Vitals: Temp Pulse Resp BP Pulse Ox 97.8 F 66 17 114/76 94 06/13/17 11:19 06/13/17 11:19 06/13/17 11:19 06/13/17 11:19 06/13/17 11:19 General appearance: Present: A&O X 3, pleasant - Head Head exam: Present: atraumatic, normal inspection - Respiratory Respiratory exam: Present: decreased breath sounds. Absent: rales, respiratory distress, rhonchi, stridor, wheezes - Cardiovascular Cardiovascular exam: Present: RRR, +S1, +S2. Absent: systolic murmur - GI/Abdominal GI/Abdominal exam: Present: distended, soft. Absent: firm, rebound, rigid - Extremities Exam Extremities exam: Absent: calf tenderness, pedal edema, tenderness - Psychiatric Psychiatric exam: Present: normal affect, normal mood Internal Medicine: Result - Labs CBC & Chem 7: 06/13/17 11:12 06/13/17 04:10 Labs: Short CBC 06/12/17 06/13/17 06/13/17 Range/Units 23:32 05:38 11:12 Hgb 13.2 11.9 11.5 (11.5-15.4) g/dL Hct 39.6 35.9 34.9 L (35.3-44.9) % BMP 06/13/17 04:10 Sodium 138 Potassium 3.8 Chloride 105 Carbon Dioxide 27 BUN 5 L Creatinine 0.62 Glucose 109 H Calcium 8.7 Liver Function 06/13/17 Range/Units 04:10 Total Bilirubin 2.9 H (0.2-1.2) mg/dL Direct Bilirubin 1.7 H (0.0-0.5) mg/dL AST 90 H (5-34) Units/L ALT 58 H (0-55) Units/L Alkaline Phosphatase 208 H (38-126) Units/L Albumin 2.7 L (3.5-5.0) g/dL - ABG Interpretation ABG results: PT/INR, D-dimer PT 14.0 Seconds (9.4-12.1) H 06/13/17 04:10 Consult Discharge Plan - Plan Referrals: Shane Syed DO [Primary Care Provider] -
[2017-06-13 18:39] LABS: Hematocrit 37.4 % (35.3-44.9); Hemoglobin 12.6 g/dL (11.5-15.4)
[2017-06-14 04:31] LABS: Basophils % 0.3 %; Eosinophils % 2.7 %; Immature Granulocytes % 0.3 % (0-4); Mean Corpuscular Volume 103.4 fL (83.0-100.0)
[2017-06-14 04:33] LABS: Eosinophils # 0.1 K/mcL (0.0-0.6); Hematocrit 36.8 % (35.3-44.9); Hemoglobin 12.3 g/dL (11.5-15.4); Lymphocytes # 0.8 K/mcL (0.6-4.6); Lymphocytes % 25.7 %; Mean Corpuscular HGB Conc 33.4 g/dL (31.6-35.5); Mean Corpuscular Hemoglobin 34.6 pg (28.0-33.3); Monocytes # 0.4 K/mcL (0.0-1.3); Monocytes % 12.3 %; Neutrophils # 1.8 K/mcL (1.6-8.9); Red Blood Count 3.56 M/mcL (3.82-4.97); Red Cell Distribution Width 15.7 % (11.5-14.5); Segmented Neutrophils % 58.7 %
[2017-06-14 04:49] LABS: Alanine Aminotransferase 53 Units/L (0-55); Albumin 2.4 g/dL (3.5-5.0); Albumin/Globulin Ratio 0.6 (1.1-2.2); Alkaline Phosphatase 179 Units/L (38-126); Aspartate Amino Transferase 85 Units/L (5-34); BUN/Creatinine Ratio 10 (6-26); Blood Urea Nitrogen 6 mg/dL (7-20); Calcium 8.4 mg/dL (8.6-10.8); Carbon Dioxide 26 mEq/L (19-29); Chloride 109 mEq/L (98-109); Globulin 3.9 g/dL (2.4-3.5); Glucose 119 mg/dL (70-99); Osmolality,Calculated 287 (280-300); Potassium 4.1 mEq/L (3.5-4.5); Sodium 139 mEq/L (136-145); Total Protein 6.3 g/dL (6.0-8.3); eGFR For African Americans > 60 (> 60); eGFR For Non-African Americans > 60 (> 60)
[2017-06-14 05:34] LABS: Mean Platelet Volume 11.1 fL (9.4-12.4)
[2017-06-14] MEDS ORDERED: SORAFENIB TOSYLATE 200 MG PO SCH (09:00)
[2017-06-14] MEDS: Nicotine 7 MG PATCH.TD24 TD SCH (09:23)
[2017-06-14] MEDS: *HR* OxyCODONE Immed Rel 5 MG TABLET PO PRN (14:35)
[2017-06-14] MEDS ORDERED: 0.9 % Sodium Chloride 250 ML ONE (16:50)
--- NOTE | 2017-06-14 17:22 | Discharge Summary ---
Date of Encounter: 06/14/17 Time of Encounter: 17:16 - Discharge Diagnosis (1) Rectal bleeding Priority: Primary Status: Acute (2) Thrombocytopenia Priority: Primary Status: Acute (3) Abnormal LFTs Priority: Secondary Status: Acute (4) Liver cancer Priority: Secondary Status: Acute Qualifiers: Liver malignancy type: hepatocellular carcinoma Qualified Code(s): C22.0 - Liver cell carcinoma (5) Hepatitis C Priority: Secondary Status: Acute Qualifiers: Viral hepatitis chronicity: chronic Hepatic coma status: without hepatic coma Qualified Code(s): B18.2 - Chronic viral hepatitis C (6) Cirrhosis of liver Priority: Secondary Status: Acute Qualifiers: Hepatic cirrhosis type: unspecified hepatic cirrhosis Ascites presence: without ascites Qualified Code(s): K74.60 - Unspecified cirrhosis of liver - Discharge Medications Home Medications: Docusate [Colace] 200 mg PO BID PRN 04/05/17 [History] Nicotine Patch [Nicoderm] 7 mg TD DAILY 04/05/17 [History] Ondansetron HCl [Zofran] 4 mg PO Q6H PRN 04/05/17 [History] OxyCODONE Immed Rel [Roxicodone 5 MG] 5 mg PO Q4H PRN 04/05/17 [History] Pantoprazole Sodium [Protonix] 40 mg PO DAILY 04/05/17 [History] Sennosides [Senna] 17.2 mg PO HS PRN 04/05/17 [History] Sorafenib Tosylate [Nexavar] 200 mg PO DAILY 04/05/17 [History] Spironolactone [Aldactone] 50 mg PO DAILY 04/05/17 [History] Sertraline [Zoloft] 50 mg PO DAILY 06/12/17 [History] Allergies/Adverse Reactions: Allergies No Known Allergies Allergy (Verified 06/12/17 19:28) Date of admission: 06/12/17 23:11 Primary care physician: Nisreen Monique Consults: 06/12/17 23:13 Consult to Gastroenterology [CONS] Routine Consulting Provider: Gastroenterology Ayesha Reason for Consult: rectal bleeding Call Completed: No - Patient Status Disposition: Home, Self-Care Condition: Fair Overall status at discharge: patient is back to baseline - Discharge Instructions Follow Up With: Shane Syed DO [Primary Care Provider] - Additional Instructions: Please go for f/u lab tests Keep your scheduled appointment with Heme Onc on coming - Diet and Activity Activity: increase activity as tolerated Diet: advance to your usual diet Hospital course: Ms. Mejia is a 51 year old female with a history of hepatitis C, recent diagnosis of HCC on Nexavar since the past month, was presented to ER y/d with acute onset hematochezia, bright red blood per rectum x 2 episodes. Pt was admitted in the hospital and started her on symptomatic and supportive care. She also happened to have severe thrombocytopenia with platelets @ 26,000 only. She received 1 U platelets upon admission. She does not have any more bolld in her stools. Denied any abdominal pain, tolerating PO intake well. However today her platelets came back again @ 24,000, but pt is not bleeding actively and her Hb stable @ 12.3. Pt was evaluated by our GI , who did recommend any procedures now. She seems to be having chronically low platelets in 30's. SO at this piint I gae her another Unit of Platelets and gave her rx for f/u labs CBC, CMP,Mg and PT /INR. Pt already have a f/u appt with her Heme Onc Dr. Terri Rizzo on . - Time Spent with Patient Total time spent providing and/or coordinating discharge services: - Constitutional Vitals: Temp Pulse Resp BP Pulse Ox 97.8 F 85 17 105/70 95 06/14/17 15:33 06/14/17 15:33 06/14/17 15:33 06/14/17 15:33 06/14/17 15:33 General appearance: Present: A&O X 3, pleasant - Head Head exam: Present: atraumatic, normal inspection - Respiratory Respiratory exam: Present: decreased breath sounds, wheezes. Absent: respiratory distress, rhonchi - Cardiovascular Cardiovascular exam: Present: RRR, +S1, +S2. Absent: systolic murmur - GI/Abdominal GI/Abdominal exam: Present: normal bowel sounds, soft. Absent: rebound, rigid, tenderness - Extremities Exam Extremities exam: Absent: calf tenderness, pedal edema, tenderness - Psychiatric Psychiatric exam: Present: normal affect, normal mood
[2017-06-14 21:45] VITALS: BP 121/85
== END 2017-06-14 21:52 | disposition home or self-care (01) | DRG 254 ==
LOC: EMEROO 19:11 → 3BNU 19:11
PROVIDERS: ADMIT Internal Medicine; ATTEND Nurse Practitioner Family